=== PATIENT | female | born 1965 | race Caucasian/White ===

== ENCOUNTER 2022-07-27 11:46 | Emergency (ER) | payer BC, SELFPAY ==
[2022-07-27 11:53] VITALS: BP 149/98; PULSE 79; RESP 16; TEMP 37; O2SAT 98; BMI 32.6
[2022-07-27 14:15] VITALS: BP 148/104; PULSE 103; O2SAT 98
--- NOTE | 2022-07-27 14:29 | ED_ITS ---
HPI - General Adult General Time Seen by Provider: 14:29 Date Seen: 07/27/22 Chief complaint: Fall/Minor Trauma Stated complaint: Fall/hit head/bleeding Time Seen by Provider: 07/27/22 13:58 Source: patient Mode of arrival: ambulatory Limitations: no limitations History of Present Illness HPI narrative: Patient is a pleasant 57-year-old female who is not on blood thinners who fell against her wooden stairs hit the back of her head fairly hard she was not knocked out, has not been nauseated, has not vomited has a mild area of tenderness right where she has a small laceration on the back of her scalp she is up. She is up-to-date on tetanus. No chronic health issues other than hypertension. The patient has been awake and alert no vomiting as mention. She called the nurse line and they instructed to come to the ER. Related Data Home Medications Medication Instructions Recorded Confirmed amlodipine 10 mg tablet mg 07/27/22 estradiol 0.1 mg/24 hr semiweekly 07/27/22 transdermal patch (Samia) hydrochlorothiazide 25 mg tablet mg 07/27/22 losartan 25 mg tablet mg 07/27/22 potassium chloride 20 mEq meq PO 07/27/22 tablet,extended release(part/cryst) progesterone micronized 100 mg mg 07/27/22 capsule Allergies Allergy/AdvReac Type Severity Reaction Status Date / Time penicillin G Allergy Verified 07/27/22 11:57 Review of Systems Status of ROS: Reports: 6 or more systems reviewed and unremarkable except as noted in History and below PFSH PFS Social History Smoking Status: Never smoker Second hand tobacco smoke exposure: No How often do you have a drink containing alcohol: never How often do you have six or more drinks on one occasion: Never AUDIT-C Alcohol total score: 0 Non-prescribed substance use: denies use service: No Exam Narrative: Exam Narrative: Objective: The patient is alert orient x3 Vital signs unremarkable Pupils aggression light extra movements intact no midline neck tenderness she got a small 1 cm laceration through the back of they ox a put. Procedure after sterile scrub with Betadine but Dermabond is applied x2 layers with good skin edge approximation good hemostasis Neurologic function is normal in upper lower extremities no chest back or abdomen complaints Const: Vital Signs, click to edit/add: Vital Signs - 24 hr 07/27/22 11:53 07/27/22 14:15 Temperature 98.6 F Pulse Rate [Left P ulse Oximeter] 79 103 H Respiratory Rate 16 Blood Pressure [Le ft Upper Arm] 149/98 H 148/104 H Pulse Oximetry 98 98 Oxygen Delivery Me thod Room Air Room Air Course Vital Signs Vital signs: Initial Vital Signs Temperature 98.6 F 07/27/22 11:53 Temperature Source Temporal Artery Scan 07/27/22 11:53 Pulse Rate 79 07/27/22 11:53 Pulse Rhythm 07/27/22 11:53 Pulse Strength 3+ Normal 07/27/22 11:53 Respiratory Rate 16 07/27/22 11:53 Blood Pressure 149/98 H 07/27/22 11:53 Blood Pressure Mean 115 07/27/22 11:53 Blood Pressure Position Sitting 07/27/22 11:53 Pulse Oximetry 98 07/27/22 11:53 Oxygen Delivery Method 07/27/22 11:53 Vital Signs Temperature 98.6 F 07/27/22 11:53 Pulse Rate 79 07/27/22 11:53 Respiratory Rate 16 07/27/22 11:53 Blood Pressure 149/98 H 07/27/22 11:53 Pulse Oximetry 98 07/27/22 11:53 Oxygen Delivery Method 07/27/22 11:53 Temperature 98.6 F 07/27/22 11:53 Pulse Rate 103 H 07/27/22 14:15 Respiratory Rate 16 07/27/22 11:53 Blood Pressure 148/104 H 07/27/22 14:15 Pulse Oximetry 98 07/27/22 14:15 Oxygen Delivery Method 07/27/22 14:15 Medical Decision Making [facility] Narrative Medical decision making narrative: Patient has a closed head injury, with a small laceration on the back of her scalp this was repaired with Dermabond. Would recommend close head trauma observation q.2 hours for 8-12 hours described family. She is here with her . Who can drive her home. We discussed imaging and mutual decision making and risks and benefits and it was elected to per pass on any x-rays of her head or neck as she has no tenderness and really does not have much of a headache. She can return if her changes concerns or problems specifically if there was any vomiting, somnolence, or pupil inequality. She has been comfortable plan will follow up as directed. She is up-to-date on tetanus Discharge Plan Discharge Clinical Impression: Closed head injury, Laceration of scalp Patient Disposition: Home w/ Parent or Adult Additional Instructions: Rest, light activity, Tylenol as needed, keep the hair dry for 2-3 days. Glue will fall off on its own after she starts bathing and showering in 3 days. Watch for any sign a head injury such as vomiting, somnolence, or pupil inequality over the next 8-12 hours every 2 hours. Return as needed Activity Level: Light activity Discharge Diet: Regular Prescriptions: No Action estradiol [Samia] 0.1 mg/24 hr patch semiweekly Label Comments: APPLY 1 TOPICALLY TWICE A WEEK DIRECTED potassium chloride 20 mEq tablet,ER particles/crystals PO amlodipine 10 mg tablet Label Comments: TAKE 1 TABLET BY MOUTH ONCE DAILY losartan 25 mg tablet Label Comments: TAKE 1 TABLET BY MOUTH ONCE DAILY hydrochlorothiazide 25 mg tablet Label Comments: TAKE 1 TABLET BY MOUTH ONCE DAILY progesterone micronized 100 mg capsule Label Comments: TAKE 1 CAPSULE BY MOUTH AT BEDTIME Stand Alone Forms: MyHealth Info Instructions
== END 2022-07-27 14:38 | disposition home or self-care (01) ==
LOC: ED 14:35
PROVIDERS: Emergency Provider Family Medicine
DX: S09.90XA Unspecified injury of head, initial encounter (principal); S01.01XA Laceration without foreign body of scalp, initial encounter; W10.9XXA Fall (on) (from) unspecified stairs and steps, initial encounter; Y93.9 Activity, unspecified; Y92.019 Unspecified place in single-family (private) house as the place of occurrence of the external cause
CPT/HCPCS: 12001; 99282; 99283